=== PATIENT | female | born 1990 | race Two or more races ===

== ENCOUNTER 2018-05-18 00:50 | Emergency (ER) | payer SELFPAY ==
[2018-05-18] MEDS ORDERED: Sodium Chloride 0.9% 10 ML Syringe FLUSH PRN (01:23)
--- NOTE | 2018-05-18 01:36 | EDM.PDOCBH ---
ED HPI GENERAL MEDICAL PROBLEM - General Chief Complaint: Drug or Alcohol Abuse Stated Complaint: Tylenol overdose Time Seen by Provider: 05/18/18 01:24 Source of Information: Reports: Patient, EMS History Limitations: Reports: No Limitations - History of Present Illness INITIAL COMMENTS - FREE TEXT/NARRATIVE: 27 YO HF presents to ER after ingesting an unknown quantity of Tylenol after getting into an argument with her partner earlier this evening. Pt reports she took the medication around 10:30pm and is unsure how many pills she ingested. Pt reports she then drove over to her partners home and told her she tried to hurt herself prompting EMS and ER evaluation. Pt reports 1 previous attempt with Tylenol in the remote past. Pt was age 15 and she took pills and went to sleep. Pt has never been evaluated for suicide attempt or psychiatrist but has been on antidepressants in the past. Pt is currently not taking any medication. Pt reports some alcohol consumption tonight but denies taking any other pills or illicit drugs. Pt is cooperative and answering questions appropriately. Pt is alert and oriented x 4 and awake without slurred speech. Pt denies any abdominal pain and/or no nausea/vomiting. Onset Date: 05/17/18 Onset Time: 22:30 Location: Reports: Generalized Improves with: Reports: None Worsens with: Reports: None Associated Symptoms: Reports: No Other Symptoms - Related Data Allergies Allergy/AdvReac Type Severity Reaction Status Date / Time No Known Drug Allergies Allergy Cannot Verified 05/18/18 01:21 Remember Home Meds: Home Meds . [No Known Home Meds] 11/21/15 [History] Past Medical History Genitourinary History: Reports: Renal Calculus Psychiatric History: Reports: Anxiety, Depression Other Psychiatric History: recent hosp for "cutting" in june 2014 - Infectious Disease History Infectious Disease History: Reports: Chicken Pox Social & Family History - Caffeine Use Caffeine Use: Reports: Soda, Tea ED ROS GENERAL - Review of Systems Review Of Systems: See Below Constitutional: Reports: No Symptoms HEENT: Reports: No Symptoms Respiratory: Reports: No Symptoms Cardiovascular: Reports: No Symptoms Endocrine: Reports: No Symptoms GI/Abdominal: Reports: No Symptoms : Reports: No Symptoms Musculoskeletal: Reports: No Symptoms Skin: Reports: No Symptoms Neurological: Reports: No Symptoms Psychiatric: Reports: Depression, Suicidal Ideation Hematologic/Lymphatic: Reports: No Symptoms Immunologic: Reports: No Symptoms ED EXAM, BEHAVIORAL HEALTH - Physical Exam Exam: See Below Exam Limited By: No Limitations General Appearance: Alert, WD/WN, No Apparent Distress Throat/Mouth: Normal Inspection, Normal Lips, Normal Teeth, Normal Gums, Normal Oropharynx, Normal Voice, No Airway Compromise Head: Atraumatic, Normocephalic Neck: Normal Inspection, Supple, Non-Tender, Full Range of Motion Respiratory/Chest: No Respiratory Distress, Lungs Clear, Normal Breath Sounds, No Accessory Muscle Use, Chest Non-Tender Cardiovascular: Normal Peripheral Pulses, Regular Rate, Rhythm, No Edema, No Gallop, No JVD, No Murmur, No Rub GI/Abdominal: Normal Bowel Sounds, Soft, Non-Tender, No Organomegaly, No Distention, No Abnormal Bruit, No Mass Back Exam: Normal Inspection, Full Range of Motion, NT Extremities: Normal Inspection, Normal Range of Motion, Non-Tender, Normal Capillary Refill, No Pedal Edema Neurological: Alert, Normal Mood/Affect, CN II-XII Intact, Normal Cognition, Normal Gait, Normal Reflexes, No Motor/Sensory Deficits, Oriented x 3 Psychiatric: Alert, Normal Affect, Normal Cognition, Normal Mood, Oriented, Suicidal Plan, Suicidal Thoughts Skin Exam: Warm, Dry, Intact, Normal color, No rash COURSE, BEHAVIORAL HEALTH COMP - Course Vital Signs: Last Vital Signs Temp 36.4 C 05/18/18 01:00 Pulse 70 05/18/18 01:00 Resp 20 05/18/18 01:00 BP 108/63 05/18/18 01:00 Pulse Ox 95 05/18/18 01:00 Orders, Labs, Meds: Active Orders 24 hr Category Date Time Status Peripheral IV Care [RC] . DIRECTED Care 05/18/18 01:23 Ordered Sodium Chloride 0.9% [Saline Flush] Med 05/18/18 01:23 Ordered 10 ml FLUSH Q8HR PRN Peripheral IV Insertion Adult [OM.PC] Routine Oth 05/18/18 01:23 Ordered Medication Orders Sodium Chloride (Saline Flush) 10 ml FLUSH Q8HR PRN PRN Reason: keep vein open Laboratory Tests 05/18/18 05/18/18 05/18/18 Range/Units 01:15 01:15 01:15 WBC 5.86 (5.00-10.00) 10^3/uL RBC 4.47 (3.80-5.50) 10^6/uL Hgb 13.7 (12.0-16.0) g/dL Hct 38.3 (37.0-47.0) % MCV 85.7 (82.0-92.0) fL MCH 30.6 (27.0-31.0) pg MCHC 35.8 (32.0-36.0) g/dL RDW 12.4 (11.5-14.5) % Plt Count 248 (150-400) 10^3/uL MPV 10.5 H (7.4-10.4) fL Immature Gran % (Auto) 0.2 (0.0-5.0) % Neut % (Auto) 59.5 (50.0-70.0) % Lymph % (Auto) 26.8 (20.0-40.0) % Kane % (Auto) 8.2 H (2.0-8.0) % Eos % (Auto) 4.4 H (1.0-3.0) % Baso % (Auto) 0.9 (0.0-1.0) % Immature Gran # (Auto) 0.01 (0.00-0.50) 10^3/uL Neut # (Auto) 3.49 (2.50-7.00) 10^3/uL Lymph # (Auto) 1.57 (1.00-4.00) 10^3/uL Kane # (Auto) 0.48 (0.10-0.80) 10^3/uL Eos # (Auto) 0.26 (0.10-0.30) 10^3/uL Baso # (Auto) 0.05 (0.00-0.10) 10^3/uL PT 10.5 (8.9-11.4) SEC INR 1.0 (0.9-1.1) APTT 26.9 (23.1-31.9) SEC Sodium 145 (136-145) mmol/L Potassium 3.4 (3.3-5.3) mmol/L Chloride 107 (98-115) mmol/L Carbon Dioxide 22.4 (21.0-32.0) mmol/L Anion Gap 19.0 H (5-15) mmol/L BUN 6 (6-25) mg/dL Creatinine 0.50 L (0.51-1.17) mg/dL Est Cr Clr Drug Dosing 136.03 mL/min Estimated GFR (MDRD) > 60 mL/min Glucose 91 (75 - 99) mg/dL Calcium 8.9 (8.7-10.3) mg/dL Total Bilirubin 0.3 (0.2-1.0) mg/dL AST 17 (15-37) U/L ALT 18 (12-78) U/L Alkaline Phosphatase 99 (46-116) IU/L Total Protein 7.0 (6.4-8.2) g/dL Albumin 3.88 (3.00-4.80) g/dL Urine Opiates Screen (NEGATIVE) Ur Oxycodone Screen (NEGATIVE) Urine Methadone Screen (NEGATIVE) Ur Propoxyphene Screen (NEGATIVE) Acetaminophen 125.9 H (10.0-30.0) ug/mL Ur Barbiturates Screen (NEGATIVE) Ur Tricyclics Screen (NEGATIVE) Ur Phencyclidine Scrn (NEGATIVE) Ur Amphetamine Screen (NEGATIVE) U Methamphetamines Scrn (NEGATIVE) U Benzodiazepines Scrn (NEGATIVE) U Cocaine Metab Screen (NEGATIVE) U Marijuana (THC) Screen (NEGATIVE) Ethyl Alcohol 3 (NONE DETECTED) mg/dL 05/18/18 Range/Units 01:45 WBC (5.00-10.00) 10^3/uL RBC (3.80-5.50) 10^6/uL Hgb (12.0-16.0) g/dL Hct (37.0-47.0) % MCV (82.0-92.0) fL MCH (27.0-31.0) pg MCHC (32.0-36.0) g/dL RDW (11.5-14.5) % Plt Count (150-400) 10^3/uL MPV (7.4-10.4) fL Immature Gran % (Auto) (0.0-5.0) % Neut % (Auto) (50.0-70.0) % Lymph % (Auto) (20.0-40.0) % Kane % (Auto) (2.0-8.0) % Eos % (Auto) (1.0-3.0) % Baso % (Auto) (0.0-1.0) % Immature Gran # (Auto) (0.00-0.50) 10^3/uL Neut # (Auto) (2.50-7.00) 10^3/uL Lymph # (Auto) (1.00-4.00) 10^3/uL Kane # (Auto) (0.10-0.80) 10^3/uL Eos # (Auto) (0.10-0.30) 10^3/uL Baso # (Auto) (0.00-0.10) 10^3/uL PT (8.9-11.4) SEC INR (0.9-1.1) APTT (23.1-31.9) SEC Sodium (136-145) mmol/L Potassium (3.3-5.3) mmol/L Chloride (98-115) mmol/L Carbon Dioxide (21.0-32.0) mmol/L Anion Gap (5-15) mmol/L BUN (6-25) mg/dL Creatinine (0.51-1.17) mg/dL Est Cr Clr Drug Dosing mL/min Estimated GFR (MDRD) mL/min Glucose (75 - 99) mg/dL Calcium (8.7-10.3) mg/dL Total Bilirubin (0.2-1.0) mg/dL AST (15-37) U/L ALT (12-78) U/L Alkaline Phosphatase (46-116) IU/L Total Protein (6.4-8.2) g/dL Albumin (3.00-4.80) g/dL Urine Opiates Screen Negative (NEGATIVE) Ur Oxycodone Screen Negative (NEGATIVE) Urine Methadone Screen Negative (NEGATIVE) Ur Propoxyphene Screen Negative (NEGATIVE) Acetaminophen (10.0-30.0) ug/mL Ur Barbiturates Screen Negative (NEGATIVE) Ur Tricyclics Screen Negative (NEGATIVE) Ur Phencyclidine Scrn Negative (NEGATIVE) Ur Amphetamine Screen Negative (NEGATIVE) U Methamphetamines Scrn Negative (NEGATIVE) U Benzodiazepines Scrn Negative (NEGATIVE) U Cocaine Metab Screen Negative (NEGATIVE) U Marijuana (THC) Screen Negative (NEGATIVE) Ethyl Alcohol (NONE DETECTED) mg/dL Medications Generic Name Dose Route Start Last Admin Trade Name Freq PRN Reason Stop Dose Admin Sodium Chloride 10 ml 05/18/18 01:23 Saline Flush FLUSH Q8HR PRN keep vein open Discontinued Medications Generic Name Dose Route Start Last Admin Trade Name Freq PRN Reason Stop Dose Admin Sodium Chloride 1,000 mls @ 999 mls/hr 05/18/18 01:23 05/18/18 01:45 Normal Saline IV 05/18/18 02:23 999 mls/hr .BOLUS ONE Administration Ondansetron HCl 4 mg 05/18/18 02:04 05/18/18 02:17 Zofran IVPUSH 05/18/18 02:05 4 mg ONETIME ONE Administration Departure - Departure Time of Disposition: 02:45 Disposition: DC/Tfer to Acute Hospital 02 Condition: Serious Clinical Impression: Depression Suicide attempt by acetaminophen overdose Qualifiers: Encounter type: initial encounter Qualified Code(s): T39.1X2A - Poisoning by 4- Aminophenol derivatives, intentional self-harm, initial encounter - Discharge Information Forms: Interfacility Transfer [facility] Orders Last 24 Hours: My Active Orders 05/18/18 01:23 Peripheral IV Care [RC] . DIRECTED Sodium Chloride 0.9% [Saline Flush] 10 ml FLUSH Q8HR PRN Peripheral IV Insertion Adult [OM.PC] Routine - Assessment/Plan Last 24 Hours: My Active Orders 05/18/18 01:23 Peripheral IV Care [RC] . DIRECTED Sodium Chloride 0.9% [Saline Flush] 10 ml FLUSH Q8HR PRN Peripheral IV Insertion Adult [OM.PC] Routine Assessment:: 1. suicide attempt 2. possible Tylenol overdose Plan: 1. Transfer to [facility] for further evaluation and treatment of possible Tylenol toxicity 2. Psych evaluation due to attempted suicide attempt 3. supportive care
[2018-05-18] MEDS: Sodium Chloride 0.9% 1,000 ML IV ONE (01:45)
[2018-05-18 02:09] LABS: ACETAMINOPHEN 125.9 ug/mL (10.0-30.0); CHLORIDE,CL 107 mmol/L (98-115); SODIUM,NA 145 mmol/L (136-145)
[2018-05-18] MEDS: Ondansetron 4 MG/2 ML SDV IVPUSH ONE (02:17)
[2018-05-18 04:26] VITALS: BP 93/52
== END 2018-05-18 03:06 ==
LOC: KA.ED 00:50
DX: T39.1X2A Poisoning by 4-Aminophenol derivatives, intentional self-harm, initial encounter (principal); F32.9 Major depressive disorder, single episode, unspecified; F41.9 Anxiety disorder, unspecified
CPT/HCPCS: 36415; 80053; 80305-QW; 85025; 85610; 85730; 96361; 96374; 99284; 99285-25; G0480; J2405; J7030

== ENCOUNTER 2022-08-21 17:55 | Emergency (ER) | payer BC, MEDICAID, OTHER ==
[2022-08-21] MEDS ORDERED: HYDROmorphone 1 MG/ML Syringe ONE (18:10)
[2022-08-21] MEDS ORDERED: Sodium Chloride 0.9% 1,000 ML ONE (18:12)
[2022-08-21] MEDS ORDERED: Sodium Chloride 0.9% 1,000 ML IV ONE ×2 (18:13→18:15)
[2022-08-21] MEDS ORDERED: HYDROmorphone 1 MG/ML Syringe IVPUSH ONE (18:14)
[2022-08-21 18:27] VITALS: BP 122/83; PULSE 84
[2022-08-21 18:28] LABS: BASOPHILS ABSOLUTE AUTO 0.02 10^3/uL (0.00-0.10); BASOPHILS PERCENT AUTO 0.2 % (0.0-1.0); EOSINOPHILS ABSOLUTE AUTO 0.11 10^3/uL (0.10-0.30); EOSINOPHILS PERCENT AUTO 1.3 % (1.0-3.0); HEMATOCRIT 35.1 % (37.0-47.0); IMMATURE GRAN ABSOLUTE AUTO 0.03 10^3/uL (0.00-0.50); IMMATURE GRAN PERCENT AUTO 0.4 % (0.0-5.0); LYMPHOCYTES PERCENT AUTO 18.2 % (20.0-40.0); MEAN CORPUSCULAR HEMOGLOBIN 25.9 pg (27.0-31.0); MEAN CORPUSCULAR HGB CONC 34.2 g/dL (32.0-36.0); MEAN CORPUSCULAR VOLUME 75.6 fL (82.0-92.0); MEAN PLATELET VOLUME 9.5 fL (7.4-10.4); MONOCYTES PERCENT AUTO 8.5 % (2.0-8.0); NEUTROPHILS PERCENT AUTO 71.4 % (50.0-70.0); PLATELET COUNT,PLT 277 10^3/uL (150-400); RED BLOOD CELL COUNT 4.64 10^6/uL (3.80-5.50); RED CELL DISTRIBUTION WIDTH 14.7 % (11.5-14.5); WHITE BLOOD CELL COUNT,WBC 8.26 10^3/uL (5.00-10.00)
[2022-08-21 18:35] LABS: ALBUMIN 3.3 g/dL (3.40-5.00); ANION GAP 14.9 mmol/L (5-15); BILIRUBIN TOTAL 0.3 mg/dL (0.2-1.0); CARBON DIOXIDE,CO2 18.6 mmol/L (21.0-32.0); CREATININE 0.44 mg/dL (0.51-1.17); EST CRCL DRUG DOSING (CG) 176.61 mL/min; POTASSIUM,K 3.5 mmol/L (3.5-5.1); PROTEIN TOTAL,TP 7.3 g/dL (6.4-8.2)
[2022-08-21 18:48] LABS: APPEARANCE,URINE CLOUDY (CLEAR); BILIRUBIN,URINE NEGATIVE (NEGATIVE); COLOR,URINE YELLOW (YELLOW); GLUCOSE,URINE NEGATIVE (NEGATIVE); KETONES,URINE 15 mg/dL (NEGATIVE); LEUKOCYTE ESTERASE,URINE NEGATIVE (NEGATIVE); NITRITE,URINE POSITIVE (NEGATIVE); OCCULT BLOOD,URINE TRACE-INTACT (NEGATIVE); PROTEIN,URINE NEGATIVE (NEGATIVE); UROBILINOGEN,URINE 0.2 E.U./dL (0.2-1.0)
[2022-08-21 18:53] LABS: BACTERIA,URINE MODERATE /HPF (NONE TO FEW); EPITHELIAL CELLS,URINE RARE /LPF; WBC,URINE 0-5 /HPF (0-5)
[2022-08-21] MEDS ORDERED: Cephalexin 250 MG Cap PO ONE (19:25)
== END 2022-08-21 19:52 | disposition home or self-care (01) ==
LOC: KA.ED 17:55
DX: O23.42 Unspecified infection of urinary tract in pregnancy, second trimester (principal); N39.0 Urinary tract infection, site not specified; O24.112 Pre-existing type 2 diabetes mellitus, in pregnancy, second trimester; O99.212 Obesity complicating pregnancy, second trimester; E66.9 Obesity, unspecified; Z79.899 Other long term (current) drug therapy; Z3A.14 14 weeks gestation of pregnancy
CPT/HCPCS: 80053; 81001; 84702; 85025; 87086; 87088; 87186; 96361; 96374; 99284; 99284-25; A9270-GY; J1170; J7030